=== PATIENT | female | born 1985 | race Caucasian/White ===

== ENCOUNTER 2020-08-06 09:19 | Emergency (ER) | payer OTHER ==
[~2020-08-06 09:19] MED LIST: AMBIEN CR12.5 MG PO; ASCORBIC ACID500 MG PO; AUGMENTIN 875-1 EACH PO; BENADRYL25 MG PO; BENTYL10 MG PO; CARAFATE1 GM PO; CERTAGEN1 EACH PO; CLONAZEPAM0.5 M1 PO; CYCLOBENZAPRINE10 MG PO; FLEXERIL10 MG PO; LAMICTAL100 MG PO; LITHIUM300 MG PO; MACROBID100 MG PO; MEDROL 4MG DOSEP4 MG PO; NORCO 5-325 TA1 EACH PO; OMEPRAZOLE40 MG PO; ONDANSETRON ODT4 MG PO; PHENERGAN25 M1 PO; PHENTERMINE HCL30 MG PO; PREDNISONE 20MG20 MG PO; PRILOSEC20 MG PO; PROZAC20 MG PO; TRAMADOL HCL50 MG PO; VENTOLIN HFA IN18 GM INH; ZANTAC150 MG PO; ZOFRAN4 MG PO; ZPAK PO
[2020-08-06 10:34] LABS: BILIRUBIN NEGATIVE (NEGATIVE); BLOOD NEGATIVE Ery/uL (NEGATIVE); CLARITY CLEAR (CLEAR); COLOR YELLOW (YELLOW); GLUCOSE (U) NORMAL (NORMAL); LEUKOCYTES NEGATIVE Leu/uL (NEGATIVE); NITRITE NEGATIVE (NEGATIVE); PROTEIN NEGATIVE (NEGATIVE); SPECIFIC GRAVITY 1.025 (1.001-1.030); UROBILINOGEN 0.2 mg/dL (0.2-1.0); pH 6.5 (5.0-9.0)
[2020-08-06 10:59] LABS: BASOPHIL 0.7 % (0-2); EOSINOPHIL 6.6 % (0-5); HGB 14.6 g/dl (12.5-16.0); LYMPHOCYTE 27.3 % (15-48); MCH 30.1 pg (25.0-31.0); MCHC 33.2 g/dL (32.0-36.0); MCV 90.7 fL (78.0-100.0); MONOCYTE 6.2 % (0-12); MPV 11.6 fL (6.0-9.5); NEUTROPHIL 58.8 % (41-80); NRBC 0; PLT 179 K/uL (150-400); RBC 4.85 M/uL (4.20-5.40); RDW 12.6 % (11.5-14.0); WBC 7.4 K/uL (4.0-10.5)
[2020-08-06 11:18] LABS: BUN/CREAT RATIO (CALC) 14.5 RATIO; CREATININE 0.62 mg/dL (0.51-0.95)
[2020-08-06] MEDS ORDERED: CITRATE OF MAG296 ML PO (11:42)
[2020-08-06] MEDS ORDERED: MIRALAX17 GM PO (11:42)
== END 2020-08-06 11:50 | disposition home or self-care (01) ==
LOC: FER 09:19
PROVIDERS: Emergency Medicine
DX: K59.00 Constipation, unspecified (principal); R11.2 Nausea with vomiting, unspecified; F17.210 Nicotine dependence, cigarettes, uncomplicated; Z98.84 Bariatric surgery status; Z88.2 Allergy status to sulfonamides; Z88.6 Allergy status to analgesic agent; Z88.8 Allergy status to other drugs, medicaments and biological substances
CPT/HCPCS: 36415; 80048; 81003; 85025

== ENCOUNTER 2020-10-30 20:53 | Emergency (ER) | payer OTHER ==
[~2020-10-30 20:53] MED LIST changes: +CITRATE OF MAG296 ML PO; +MIRALAX17 GM PO
[2020-10-30 22:33] LABS: BASOPHIL 0.6 % (0-2); EOSINOPHIL 4.7 % (0-5); HCT 39.5 % (37.0-47.0); HGB 13.3 g/dl (12.5-16.0); LYMPHOCYTE 26.7 % (15-48); MCHC 33.7 g/dL (32.0-36.0); MONOCYTE 6.6 % (0-12); MPV 11.7 fL (6.0-9.5); NEUTROPHIL 61.3 % (41-80); NRBC 0; PLT 165 K/uL (150-400); RBC 4.44 M/uL (4.20-5.40); RDW 12.3 % (11.5-14.0); WBC 7.7 K/uL (4.0-10.5)
[2020-10-30 22:51] LABS: ALBUMIN 3.4 g/dL (3.4-5.0); BILIRUBIN - TOTAL 0.6 mg/dL (0.2-1.0); BUN/CREAT RATIO (CALC) 9.6 RATIO; CREATININE 0.73 mg/dL (0.51-0.95); GLOBULIN (CALCULATION) 3.3 g/dL; POTASSIUM 3.3 mmol/L (3.5-5.1); TOTAL PROTEIN 6.7 g/dL (6.4-8.2)
== END 2020-10-31 00:42 | disposition home or self-care (01) ==
LOC: FER 20:53
PROVIDERS: Nurse Practitioner Family
DX: R10.31 Right lower quadrant pain (principal); E87.6 Hypokalemia; R63.4 Abnormal weight loss; N64.4 Mastodynia; Z90.49 Acquired absence of other specified parts of digestive tract; Z98.890 Other specified postprocedural states; Z98.84 Bariatric surgery status; Z88.2 Allergy status to sulfonamides; Z88.6 Allergy status to analgesic agent; Z88.8 Allergy status to other drugs, medicaments and biological substances
CPT/HCPCS: 36415; 80053; 85025; 93971; J2270; J2405; J7030; Q9967

== ENCOUNTER 2020-11-12 17:15 | Emergency (ER) | payer OTHER ==
[2020-11-12 18:17] LABS: ALBUMIN 3.9 g/dL (3.4-5.0); BILIRUBIN - TOTAL 0.7 mg/dL (0.2-1.0); BUN/CREAT RATIO (CALC) 5.6 RATIO; CREATININE 0.72 mg/dL (0.51-0.95); GLOBULIN (CALCULATION) 3.5 g/dL; POTASSIUM 2.9 mmol/L (3.5-5.1); TOTAL PROTEIN 7.4 g/dL (6.4-8.2)
[2020-11-12 18:20] LABS: BASOPHIL 0.6 % (0-2); EOSINOPHIL 1.9 % (0-5); HCT 40.5 % (37.0-47.0); HGB 13.9 g/dl (12.5-16.0); LYMPHOCYTE 24.9 % (15-48); MCH 30.1 pg (25.0-31.0); MCHC 34.3 g/dL (32.0-36.0); MCV 87.7 fL (78.0-100.0); MPV 11.3 fL (6.0-9.5); NEUTROPHIL 68.4 % (41-80); NRBC 0; PLT 215 K/uL (150-400); RBC 4.62 M/uL (4.20-5.40); RDW 12.6 % (11.5-14.0); WBC 6.4 K/uL (4.0-10.5)
[2020-11-12 19:17] LABS: BILIRUBIN NEGATIVE (NEGATIVE); BLOOD NEGATIVE Ery/uL (NEGATIVE); CLARITY CLEAR (CLEAR); COLOR YELLOW (YELLOW); GLUCOSE (U) NORMAL (NORMAL); LEUKOCYTES NEGATIVE Leu/uL (NEGATIVE); NITRITE NEGATIVE (NEGATIVE); PROTEIN NEGATIVE (NEGATIVE); SPECIFIC GRAVITY 1.015 (1.001-1.030); UROBILINOGEN 0.2 mg/dL (0.2-1.0); pH 8.5 (5.0-9.0)
[2020-11-12 19:21] LABS: AMPHETAMINES NEGATIVE (NEGATIVE); BARBITURATES NEGATIVE (NEGATIVE); ECSTASY (MDMA) NEGATIVE (NEGATIVE); MARIJUANA (THC) NEGATIVE (NEGATIVE); METHADONE NEGATIVE (NEGATIVE); OPIATES NEGATIVE (NEGATIVE); OXYCODONE NEGATIVE (NEGATIVE)
[2020-11-12 19:29] LABS: FT4 (FREE T4) 1.1 ng/dL (0.76-1.46)
[2020-11-12 20:32] LABS: MAGNESIUM 1.8 mg/dL (1.8-2.4); PHOSPHORUS 3.5 mg/dL (2.6-4.7)
== END 2020-11-12 21:09 | disposition home or self-care (01) ==
LOC: FER 17:15
PROVIDERS: Nurse Practitioner Family
DX: F41.9 Anxiety disorder, unspecified (principal); E87.6 Hypokalemia; Z87.891 Personal history of nicotine dependence; Z88.2 Allergy status to sulfonamides; Z88.5 Allergy status to narcotic agent; Z88.6 Allergy status to analgesic agent; Z88.8 Allergy status to other drugs, medicaments and biological substances
CPT/HCPCS: 36415; 70450; 80053; 80305; 81003; 83735; 84100; 84439; 84443; 85025; J2060; J7030

== ENCOUNTER 2020-11-30 18:18 | Emergency (ER) | payer OTHER ==
[2020-11-30 19:15] LABS: BILIRUBIN NEGATIVE (NEGATIVE); BLOOD NEGATIVE Ery/uL (NEGATIVE); CLARITY CLEAR (CLEAR); COLOR YELLOW (YELLOW); GLUCOSE (U) NORMAL (NORMAL); LEUKOCYTES NEGATIVE Leu/uL (NEGATIVE); NITRITE NEGATIVE (NEGATIVE); PROTEIN NEGATIVE (NEGATIVE); SPECIFIC GRAVITY >=1.030 (1.001-1.030); pH 5.5 (5.0-9.0)
[2020-11-30 19:39] LABS: BASOPHIL 0.9 % (0-2); EOSINOPHIL 4.7 % (0-5); HCT 40.2 % (37.0-47.0); HGB 13.9 g/dl (12.5-16.0); LYMPHOCYTE 31.6 % (15-48); MCH 30.3 pg (25.0-31.0); MCHC 34.6 g/dL (32.0-36.0); MCV 87.6 fL (78.0-100.0); MONOCYTE 6.8 % (0-12); MPV 10.7 fL (6.0-9.5); NEUTROPHIL 55.9 % (41-80); NRBC 0; PLT 227 K/uL (150-400); RBC 4.59 M/uL (4.20-5.40); RDW 12.7 % (11.5-14.0); WBC 6.8 K/uL (4.0-10.5)
[2020-11-30 19:54] LABS: ALBUMIN 3.9 g/dL (3.4-5.0); BILIRUBIN - TOTAL 0.5 mg/dL (0.2-1.0); BUN/CREAT RATIO (CALC) 10.6 RATIO; CREATININE 0.66 mg/dL (0.51-0.95); GLOBULIN (CALCULATION) 3.9 g/dL; POTASSIUM 3.6 mmol/L (3.5-5.1); TOTAL PROTEIN 7.8 g/dL (6.4-8.2)
== END 2020-11-30 22:05 | disposition home or self-care (01) ==
LOC: FER 18:18
PROVIDERS: Nurse Practitioner Family
DX: B37.3 Candidiasis of vulva and vagina (principal); Z87.891 Personal history of nicotine dependence; Z88.2 Allergy status to sulfonamides; Z88.6 Allergy status to analgesic agent; Z88.8 Allergy status to other drugs, medicaments and biological substances
CPT/HCPCS: 36415; 80053; 81003; 85025; J7030

== ENCOUNTER 2021-04-04 18:00 | Emergency (ER) | payer OTHER ==
[2021-04-04 18:32] LABS: BASOPHIL 0.8 % (0-2); EOSINOPHIL 2.5 % (0-5); HCT 41.1 % (37.0-47.0); HGB 13.7 g/dl (12.5-16.0); LYMPHOCYTE 31.5 % (15-48); MCH 29.7 pg (25.0-31.0); MCHC 33.3 g/dL (32.0-36.0); MCV 89.2 fL (78.0-100.0); MPV 11.7 fL (6.0-9.5); NEUTROPHIL 58.9 % (41-80); NRBC 0; PLT 174 K/uL (150-400); RBC 4.61 M/uL (4.20-5.40); RDW 12.3 % (11.5-14.0); WBC 6.5 K/uL (4.0-10.5)
[2021-04-04 18:48] LABS: ALBUMIN 3.8 g/dL (3.4-5.0); BILIRUBIN - TOTAL 1.4 mg/dL (0.2-1.0); BUN/CREAT RATIO (CALC) 11.1 RATIO; CREATININE 0.63 mg/dL (0.51-0.95); GLOBULIN (CALCULATION) 3.4 g/dL; POTASSIUM 2.8 mmol/L (3.5-5.1); TOTAL PROTEIN 7.2 g/dL (6.4-8.2)
[2021-04-04 18:49] LABS: BILIRUBIN 1+ mg/dL (NEGATIVE); BLOOD NEGATIVE Ery/uL (NEGATIVE); CLARITY CLEAR (CLEAR); COLOR YELLOW (YELLOW); GLUCOSE (U) NORMAL (NORMAL); LEUKOCYTES NEGATIVE Leu/uL (NEGATIVE); NITRITE POSITIVE (NEGATIVE); PROTEIN TRACE (LOW) mg/dL (NEGATIVE); SPECIFIC GRAVITY >=1.030 (1.001-1.030); pH 5.5 (5.0-9.0)
[2021-04-04 18:56] LABS: AMORPHOUS URATES CRYSTALS TRACE; BACTERIA 2+; MUCOUS TRACE
[2021-04-04] MEDS ORDERED: KEFLEX250 MG PO (20:44)
== END 2021-04-04 22:35 | disposition home or self-care (01) ==
LOC: FER 18:00
PROVIDERS: Emergency Medicine
DX: N39.0 Urinary tract infection, site not specified (principal); Z88.2 Allergy status to sulfonamides; Z88.6 Allergy status to analgesic agent
CPT/HCPCS: 36415; 80053; 81001; 83690; 85025; J1170; J2270; J2405; J2543; J3475; J3480; J7030

== ENCOUNTER 2021-08-23 12:23 | Emergency (ER) | payer OTHER ==
[~2021-08-23 12:23] MED LIST changes: +KEFLEX250 MG PO
[2021-08-23] MEDS ORDERED: NORCO 5-325 TA1 EACH PO (14:57)
[2021-08-23] MEDS ORDERED: MEDROL 4MG DOSEP4 MG PO (14:57)
[2021-08-23] MEDS ORDERED: CYCLOBENZAPRINE10 MG PO (14:57)
== END 2021-08-23 15:48 | disposition home or self-care (01) ==
LOC: FER 12:23
DX: S13.4XXA Sprain of ligaments of cervical spine, initial encounter (principal); S33.5XXA Sprain of ligaments of lumbar spine, initial encounter; S23.3XXA Sprain of ligaments of thoracic spine, initial encounter; S40.022A Contusion of left upper arm, initial encounter; Z88.5 Allergy status to narcotic agent; Z88.6 Allergy status to analgesic agent; Z88.2 Allergy status to sulfonamides; W10.9XXA Fall (on) (from) unspecified stairs and steps, initial encounter; W20.8XXA Other cause of strike by thrown, projected or falling object, initial encounter
CPT/HCPCS: 70450; 71111; 72125; 72128; 72131; J1100

== ENCOUNTER 2022-01-11 17:42 | Emergency (ER) | payer OTHER | END 2022-01-11 18:15 | disposition home or self-care (01) | LOC: FER 17:42 | DX: M79.641 Pain in right hand (principal); G40.909 Epilepsy, unspecified, not intractable, without status epilepticus; Z45.2 Encounter for adjustment and management of vascular access device; Z88.1 Allergy status to other antibiotic agents; Z88.5 Allergy status to narcotic agent; Z88.6 Allergy status to analgesic agent; Z88.8 Allergy status to other drugs, medicaments and biological substances; Z79.899 Other long term (current) drug therapy | CPT/HCPCS: 99283 ==